=== PATIENT | female | born 1965 | race Caucasian/White ===

== ENCOUNTER → 2017-03-24 | Outpatient (CLI) | payer MEDICARE | END | disposition home or self-care (01) | LOC: CFH 13:34 | PROVIDERS: ATTEND Advanced Practice Midwife | DX: Z12.31 Encounter for screening mammogram for malignant neoplasm of breast (principal) | CPT/HCPCS: G0202 ==

== ENCOUNTER → 2018-03-29 | Outpatient (CLI) | payer MEDICARE | END | disposition home or self-care (01) | LOC: CFH 09:41 | PROVIDERS: ATTEND Specialist | DX: Z12.31 Encounter for screening mammogram for malignant neoplasm of breast (principal) | CPT/HCPCS: 77067 ==

== ENCOUNTER 2018-05-16 12:34 | Inpatient (IN) | payer MEDICARE ==
[~2018-05-16] VITALS: Ht 162.6 cm; Wt 129.7 kg
[2018-05-16] MEDS ORDERED: SODIUM CHLORIDE FLUSH 10ML SYR IVF ONE (13:30)
[2018-05-16 13:36] LABS: BASOPHILS # (AUTO) 0.01 x10^3/uL (0-0.1); BASOPHILS % (AUTO) 0 % (0-1); EOSINOPHILS # (AUTO) 0.08 x10^3/uL (0-0.4); EOSINOPHILS % (AUTO) 1 % (1-7); LYMPHOCYTES # (AUTO) 1.61 x10^3/uL (1-3.4); LYMPHOCYTES % (AUTO) 27 % (22-44); MD NO; MEAN CORPUSCULAR HEMOGLOBIN 28.4 pg (27.0-34.8); MEAN CORPUSCULAR HGB CONC 33.9 g/dL (32.4-35.8); MEAN CORPUSCULAR VOLUME 83.8 fL (80-100); MEAN PLATELET VOLUME 7.1 fL (7.4-10.4); MONOCYTES # (AUTO) 0.56 x10^3/uL (0.2-0.8); MONOCYTES % (AUTO) 9 % (2-9); NEUTROPHILS # (AUTO) 3.81 x10^3/uL (1.8-6.8); NEUTROPHILS % (AUTO) 63 % (42-75); PLATELET COUNT 405 x10^3/uL (130-400); RED BLOOD COUNT 3.99 x10^6/uL (3.82-5.3); RED CELL DISTRIBUTION WIDTH 18.3 % (9.6-15.2)
[2018-05-16 13:44] LABS: INTERNATIONAL NORMALIZED RATIO 0.95 (0.93-1.1); PROTHROMBIN TIME 9.8 Seconds (9.6-11.5)
[2018-05-16 13:47] LABS: ALANINE AMINOTRANSFERASE 37 U/L (12-78); ALBUMIN 3.4 g/dL (3.4-5.0); ANION GAP 8 mmol/L (5-15); CALCIUM 9.1 mg/dL (8.5-10.1); CHLORIDE 92 mmol/L (98-107); CREATININE 0.89 mg/dL (0.55-1.02)
[2018-05-16 13:49] LABS: ALKALINE PHOSPHATASE 140 U/L (45-117); BILIRUBIN,TOTAL 0.3 mg/dL (0.2-1.0); TOTAL PROTEIN 7.2 g/dL (6.4-8.2)
[2018-05-16] MEDS ORDERED: SODIUM CHLORIDE FLUSH 10ML SYR IVF PRN (14:30)
[2018-05-16 14:42] LABS: CULTURE INDICATED? YES; MICROSCOPIC INDICATED
[2018-05-16] MEDS ORDERED: ESTR1TAB15 PO (15:02)
[2018-05-16] MEDS ORDERED: LEVO25TA4 PO (15:02)
[2018-05-16] MEDS ORDERED: OMEP-110 PO (15:03)
[2018-05-16] MEDS ORDERED: OXCA300T19 PO ×2 (15:05→15:06)
[2018-05-16] MEDS ORDERED: INUL1TAB4 PO (15:07)
[2018-05-16] MEDS ORDERED: PREG150C PO (15:08)
[2018-05-16] MEDS ORDERED: MULT-717 PO (15:08)
[2018-05-16] MEDS ORDERED: MULT-672 PO (15:09)
[2018-05-16] MEDS ORDERED: MELO15TA24 PO (15:13)
[2018-05-16] MEDS ORDERED: SUVO10TA PO (15:13)
[2018-05-16] MEDS ORDERED: TIZA4CAP PO (15:14)
[2018-05-16] MEDS ORDERED: METH5TAB2 PO (15:14)
[2018-05-16] MEDS ORDERED: MODA200T2 PO (15:15)
[2018-05-16] MEDS ORDERED: NORE0.3513 PO (15:15)
[2018-05-16] MEDS ORDERED: ACETAMINOPHEN 325 MG TABLET PO PRN (15:30)
[2018-05-16] MEDS ORDERED: ONDANSETRON 2MG/ML, 2ML IVPush PRN (15:30)
[2018-05-16] MEDS ORDERED: POLYETHYLENE GLYCOL 17 GM PACKET PO PRN (15:30)
[2018-05-16] MEDS ORDERED: DOCUSATE 100 MG CAPSULE PO PRN (15:30)
[2018-05-16] MEDS: SODIUM CHLORIDE 0.9% 1,000 ML IV SCH (16:48)
[2018-05-16 18:54] VITALS: BP 153/87
[2018-05-16] MEDS: FAMOTIDINE 20 MG TABLET PO SCH (20:57)
[2018-05-16] MEDS: PREGABALIN 150 MG CAPSULE PO SCH (20:57)
[2018-05-17] MEDS: SODIUM CHLORIDE 0.9% 1,000 ML IV SCH (00:54)
[2018-05-17 01:46] VITALS: BP 156/86
[2018-05-17 05:11] LABS: ANION GAP 7 mmol/L (5-15); CHLORIDE 95 mmol/L (98-107); CREATININE 0.89 mg/dL (0.55-1.02)
[2018-05-17 06:49] VITALS: BP 186/91
[2018-05-17] MEDS: FAMOTIDINE 20 MG TABLET PO SCH (08:18)
[2018-05-17] MEDS: PREGABALIN 150 MG CAPSULE PO SCH (08:19)
[2018-05-17] MEDS ORDERED: MULTIVITAMINS/MINERALS TABLET PO SCH (09:00)
[2018-05-17] MEDS ORDERED: SENNA/DOCUSATE TABLET PO SCH (09:00)
[2018-05-17] MEDS ORDERED: LEVOTHYROXINE 50 MCG TABLET PO SCH (09:00)
[2018-05-17] MEDS ORDERED: ESTRADIOL 1 MG TABLET PO SCH (09:00)
[2018-05-17] MEDS ORDERED: TIZANIDINE 2MG TABLET PO PRN (13:00)
[2018-05-17] MEDS ORDERED: MELOXICAM 15 MG TABLET PO SCH (13:00)
[2018-05-17] MEDS ORDERED: NORETHINDRONE 5 MG PO SCH (13:00)
[2018-05-17] MEDS ORDERED: MODAFINIL 100 MG TABLET PO SCH (13:00)
[2018-05-17 13:13] VITALS: BP 155/70
[2018-05-17] MEDS: METHADONE 10 MG TABLET PO SCH ×2 (13:24→14:00)
[2018-05-17 14:59] LABS: ANION GAP 8 mmol/L (5-15); CALCIUM 9.9 mg/dL (8.5-10.1); CHLORIDE 101 mmol/L (98-107)
[2018-05-17 15:00] LABS: CREATININE 0.93 mg/dL (0.55-1.02)
== END 2018-05-17 16:37 | disposition home or self-care (01) | DRG 641 ==
LOC: ED 13:53 → EDIP 14:27 → SUATTDRO 14:54 → 3NE 15:20
PROVIDERS: ADMIT Internal Medicine; ATTEND Internal Medicine
DX: E87.1 Hypo-osmolality and hyponatremia (principal); Z68.42 Body mass index [BMI] 45.0-49.9, adult; E66.01 Morbid (severe) obesity due to excess calories; G89.29 Other chronic pain; E03.9 Hypothyroidism, unspecified; T42.1X5A Adverse effect of iminostilbenes, initial encounter; Y92.89 Other specified places as the place of occurrence of the external cause; Z88.5 Allergy status to narcotic agent; Z88.1 Allergy status to other antibiotic agents; Z91.040 Latex allergy status
CPT/HCPCS: 36415; 80048; 80053; 81001; 85025; 85610; 85730; 87086; 87147; 93005; 99285; G0378; J7030